=== PATIENT | male | born 1940 | race Caucasian/White ===

== ENCOUNTER 2016-11-24 20:07 | Inpatient (IN) | payer MEDICARE ==
--- NOTE | ~2016-11-24 | CN ---
Consultation Report [address] [place]. [address] NAME: EDDIE LOPEZ : 38 STATUS : ADM IN PAT#: [id number] AGE: 76 ADM/REG DATE : 11/25/16 MR#: [id number] REPORT SERV DATE: 11/25/16 DICTATED BY: MICHAEL SEBASTIAN III DATE: 11/25/16 REPORT STATUS : Draft TRANSCRIBED BY: MODL DATE: 11/25/16 CONSULTATION DATE OF CONSULTATION: REASON FOR CONSULTATION: 1. History of bladder cancer. 2. Urinary tract infection. HISTORY OF PRESENT ILLNESS: Mr. Lopez is a 76-year-old white male who is an old patient of mine. He has history of urothelial carcinoma and is status post several transurethral resections and recent surveillance cystoscopy, which showed no evidence of disease. He received prophylactic ciprofloxacin at that time, but is admitted now with urinary tract infection. PAST MEDICAL HISTORY: Bladder cancer as above, hypertension. HOME MEDICATIONS: Reviewed. Basically, just one triamcinolone cream. ALLERGIES: HE HAS NO KNOWN DRUG ALLERGIES. PHYSICAL EXAMINATION: GENERAL: The patient is awake and alert. LABORATORY DATA: His lab work reveals a white blood cell count of 9.5. BUN and creatinine are 20 and 1.4. His glucose is elevated at 294. ASSESSMENT: 1. History of urothelial carcinoma. No evidence of disease by cystoscopy recently. 2. Urinary tract infection. Culture is pending. The patient is receiving Rocephin. 3. New onset diabetes. PLAN: We will follow the urine culture and then recommend sensitivity directed antibiotics. He will be scheduled for cystoscopy in 6 months. PH/MODL Michael Sebastian III, M.D. / [id number] Consultation Report [address] [place]. [address] NAME: EDDIE LOPEZ : 38 STATUS : ADM IN PAT#: [id number] AGE: 76 ADM/REG DATE : 11/25/16 MR#: [id number] REPORT SERV DATE: 11/25/16 DICTATED BY: MICHAEL SEBASTIAN III DATE: 11/25/16 REPORT STATUS : Draft TRANSCRIBED BY: ALESHIA DATE: 11/25/16 CC: MD Radhames García M.D.
--- NOTE | ~2016-11-24 | HP ---
History And Physical [address] [place]. [address] NAME: EDDIE LOPEZ : 38 STATUS : ADM Jacob PAT#: [id number] AGE: 76 ADM/REG DATE : 11/24/16 MR#: [id number] REPORT SERV DATE: 11/25/16 DICTATED BY: YOSI MARTINEZ DATE: 11/25/16 REPORT STATUS : Draft TRANSCRIBED BY: MODL DATE: 11/25/16 DATE OF ADMISSION: 11/24/2016 CHIEF COMPLAINT: A 76-year-old male presenting with weakness and evidence of urinary tract infection. HISTORY OF PRESENT ILLNESS: The patient's history was obtained through careful interview with the patient and , coupled with review of [facility] and [facility] medical records. The patient early in the day of admission was feeling quite well. He had been traveling up to [place] with his and in the evening, was sitting down to watch television in a loveseat and he tried to get up and was too weak to get up from a seated position. He states "my legs just would not hold me up." He states that he has developed a fever when he arrived here and indeed we measured a temperature of 103.1, but he denies any chills. He has had significant diaphoresis. No urinary frequency. No dysuria. No difficulty with urine flow or other prostate symptoms apparently. The patient has been told he has diabetes in the past, but does not check his blood sugars nor take any medications for diabetes. No nausea or vomiting. No abdominal pain. No chest pain. No back pain. No headache. REVIEW OF SYSTEMS: Otherwise, a 14-point review of systems was obtained and was negative. PAST MEDICAL HISTORY: 1. Bladder cancer, urothelial, in 2008 with multiple TURBTs over the years, seen by Dr. Peterson. 2. Obstructive sleep apnea, but not on CPAP. 3. Chronic kidney disease stage 3. Baseline creatinine of 1.3 to 1.4. 4. Peptic ulcer disease. 5. Parathyroid adenoma, under observation. 6. Diabetes. 7. Nephrolithiasis. PAST SURGICAL HISTORY: 1. Multiple TURBTs. 2. Left elbow surgery. 3. Right shoulder surgery. ALLERGIES: NO KNOWN DRUG ALLERGIES. SOCIAL HISTORY: No tobacco abuse. No alcohol abuse. He is . He has no children. [facility] [address] [address] NAME: EDDIE LOPEZ : 38 STATUS : ADM Jacob PAT#: [id number] AGE: 76 ADM/REG DATE : 11/24/16 MR#: [id number] REPORT SERV DATE: 11/25/16 DICTATED BY: YOSI MARTINEZ DATE: 11/25/16 REPORT STATUS : Draft TRANSCRIBED BY: MODL DATE: 11/25/16 Retired from [employer]. FAMILY HISTORY: Stroke. Almost everyone in the family lived to an old age. CURRENT MEDICATIONS: Topical cream only. PHYSICAL EXAMINATION: VITAL SIGNS: Temperature 103.1, pulse 109, blood pressure 153/77, respiratory rate 20, and O2 saturation 97% on room air. GENERAL: A pleasant, cooperative male, not in any particular distress though. HEENT: Pupils are equal, round, and reactive to light. No conjunctival pallor. No scleral icterus. Nares are patent. Oropharynx is clear of obstruction. Dry mucous membranes. NECK: Trachea midline. No thyromegaly. LYMPH: No cervical lymphadenopathy. No supraclavicular lymphadenopathy. No inguinal lymphadenopathy. RESPIRATORY: Clear to auscultation at bases. No wheezes, rales, or rhonchi. Normal respiratory effort. CARDIOVASCULAR: Tachycardic. Regular rhythm. No murmurs, rubs, or gallops. No current extremity edema is appreciated. ABDOMEN: Completely soft and nontender. No distention noticed. No flank tenderness. No hepatosplenomegaly. DERMATOLOGIC: Diaphoretic warm extremities. No pallor. No cyanosis. PSYCHIATRIC: Normal affect. Good mood. Alert and oriented x3. LABORATORY DATA: White blood cell count 11, hemoglobin 13, hematocrit 39, platelets 162. Sodium 135, potassium 4.1, chloride 102, bicarbonate 24, BUN 24, creatinine 1.5, glucose 311. Urinalysis shows positive leukocyte esterase with 84 white blood cells. Lactic acid 1.8. Liver enzymes within normal limits. STUDIES: 1. Chest x-ray by my own evaluation shows no acute cardiopulmonary process. 2. EKG by my own evaluation shows sinus tachycardia, left ventricular hypertrophy. ASSESSMENT AND PLAN: 1. Urinary tract infection. Check urine culture. Place on IV Rocephin. Consult Urology, Dr. Peterson. Check an ultrasound of the bladder and kidneys. 2. Uncontrolled diabetes, does not take medications for diabetes though and does not check his blood sugars. Obtain a nutrition educator consult. Start empiric Levemir sliding scale insulin and check hemoglobin A1c. 3. Chronic kidney disease stage 3. 4. History of bladder cancer. 5. Chronic stasis dermatitis. Obtain a Wound Care consult. JEAN-PIERRE/ALESHIA History And Physical [address] [address] NAME: EDDIE LOPEZ : 38 STATUS : ADM Jacob PAT#: [id number] AGE: 76 ADM/REG DATE : 11/24/16 MR#: [id number] REPORT SERV DATE: 11/25/16 DICTATED BY: YOSI MARTINEZ DATE: 11/25/16 REPORT STATUS : Draft TRANSCRIBED BY: ALESHIA DATE: 11/25/16 Yosi Martinez M.D. / [id number] CC: MD Radhames García M.D. Gregg Shander, M.D. Paul Henson III, M.D.
--- NOTE | ~2016-11-24 | DS ---
Discharge Summary [facility] [address] [place]. [address] NAME: EDDIE LOPEZ : 38 STATUS : DIS IN PAT#: [id number] AGE: 76 ADM/REG DATE : 11/25/16 MR#: [id number] REPORT SERV DATE: 11/28/16 DICTATED BY: ISHAN DANG DATE: 11/27/16 REPORT STATUS : Draft TRANSCRIBED BY: MODL DATE: 11/27/16 ADMISSION DATE: 11/25/2016 DISCHARGE DATE: 11/27/2016 CONSULTANTS: Michael Peterson M.D., Urology. DISCHARGE DIAGNOSES: 1. Complicated urinary tract infection with methicillin sensitive Staph aureus. 2. Transient severe weakness due to complicated urinary tract infection and acute kidney injury. 3. Acute kidney injury, transient, resolved. 4. Hypertension. 5. Diabetes mellitus type 2 with poor control with A1c 10.9%. 6. Hypertension. 7. Obstructive sleep apnea, not wearing CPAP. 8. Chronic venous stasis on legs. 9. Obesity with body mass index 33.2. 10.History of renal stones. 11.History of parathyroid adenoma. HISTORY: This gentleman was with his traveled up to [place], was sitting down watching television in a chair and was too weak to get up from a seated position. Had fever of 103, diaphoresis, was found to have uncontrolled diabetes, and evidence for urinary tract infection and was referred to our team for inpatient care. Imaging on admission included a chest x-ray that was read as unremarkable other than a shallow inspiratory size. He had a renal ultrasound done on 11/25/2016 showing normal findings in the kidneys, small hypoechoic finding protruding from the posterior bladder wall on the right, possibly a small diverticulum. The patient's creatinine on admission to the hospital was 1.57, after hydration it came down to 1.13. His BUN was 24 on admission, by discharge it was 17. His white count on admission was 11, by discharge 6.3; his hemoglobin was mildly low throughout measuring 12.2 to 13.3, and he has mild thrombocytopenia that is new and he had a platelet count of a 148,000 that could be related to infection. His INR 1.2. Urinalysis on admission, glucose greater than 500, protein 30, moderate leukocyte esterase, 84 white blood cells, rare bacteria. Two blood cultures were obtained. One of them grew out coagulase-negative staph felt to be a contaminant. His urine culture grew out greater than 100,000 methicillin sensitive Staph aureus. Initially, he was on Rocephin; then when the preliminary urine culture grew gram positive, he was on vancomycin; and when the final cultures have arrived, we switched him over to oral Duricef. He was seen by urologist, Dr. Peterson who knows him from his previous bladder cancer treatment. He recommended continuation of his antibiotics and follow up with him in the office as already scheduled. The patient has had diabetes mellitus for years. He admits he has really not been doing anything about it. His A1c is 10.9%. primary special educator met with him and instructed him in Discharge Summary [address] [address] NAME: EDDIE LOPEZ : 38 STATUS : DIS IN PAT#: [id number] AGE: 76 ADM/REG DATE : 11/25/16 MR#: [id number] REPORT SERV DATE: 11/28/16 DICTATED BY: ISHAN DANG DATE: 11/27/16 REPORT STATUS : Draft TRANSCRIBED BY: ALESHIA DATE: 11/27/16 the methods for checking his blood sugar using a Contour Next meter, a new meter was given to him. Also he was shown how to use the Levemir FlexPen and the NovoLog FlexPen, each has a 45 dollar co-pay for him. The patient states he is willing to take that at this point in time. At discharge, he states he is ambulating and eating well. No pain, no dysuria. He has chronic nocturia, but he states no worse than his usual, and he is eager to go home. He can follow up with his PCP in the next week and Urology as scheduled. DISCHARGE MEDICATIONS: Norvasc 5 mg daily started for hypertension, NovoLog level 2 sliding scale a.c. and at nighttime, Levemir 12 units twice a day, lisinopril 10 mg daily for blood pressure, Tylenol 650 q.6 hours p.r.n. pain or fever, and cefadroxil 1000 mg p.o. b.i.d. for seven days. I spent 37 minutes today with the patient and with the discharge plan. DICTATED BY: Ishan Dang M.D. RSCecil/MODL Ishan Dang M.D. / [id number] CC: Alyse Juarez M.D. Gregg Shander, M.D. Vincent Viscomi, M.D., F.C.C.P. Michael Peterson III, M.D.
[~2016-11-24 20:07] MED LIST: *DENIES; DEMA20 PO; DIOV160 PO; GLUCOTRO10 PO; IRON325 MG PO; K-TABS10 MEQ PO; NO MED
[2016-11-24 21:26] LABS: BASOPHILS 0.1 %; BASOPHILS ABSOLUTE 0.01 10/3/uL (0.0-0.16); EOSINOPHILS 0.1 %; EOSINOPHILS ABSOLUTE 0.01 10/3/uL (0.0-0.53); HEMATOCRIT 39.8 % (40.0-51.0); HEMOGLOBIN 13.3 g/dL (13.6-17.8); IMMATURE GRANULOCYTES 0.7 %; IMMATURE GRANULOCYTES ABSOLUTE 0.08 10/3/uL (0.0-0.11); LYMPHOCYTES ABSOLUTE 1.21 10/3/uL (0.67-4.30); MEAN CORPUS HGB CONC 33.4 g/dL (32.0-36.0); MEAN CORPUSCULAR HEMOGLOB 26.7 pg (26.0-34.0); MONOCYTES 6.8 %; MONOCYTES ABSOLUTE 0.75 10/3/uL (0.21-1.20); NEUTROPHILS 81.3 %; NEUTROPHILS ABSOLUTE 8.94 10/3/uL (2.02-8.40); RBC DISTRIBUTION WIDTH 15.1 % (12.0-16.0); RED CELL COUNT 4.98 10/6/uL (4.7-6.1)
[2016-11-24 21:30] LABS: ASCORBIC ACID (UR NOT ORDER) NEG (NEG); BILIRUBIN, URINE NEGATIVE (NEG); ER URINALYSIS TAT 0 Hrs 12 Mins; KETONE, URINE NEGATIVE (NEG); LEUKOCYTE ESTERASE(NOT OR MOD (NEG); NITRITE (URINE) NEG (NEG); WBC (NOT ORDERED) (RFLEX) 84 (0-5)
[2016-11-24 21:33] LABS: INTERNATIONAL NORMAL RATI 1.2 UNITS (-); PROTIME (NOT ORD) 14.9 SEC (12.0-14.5)
[2016-11-24 21:34] LABS: PARTIAL THROMBO TIME 29.2 SEC (22.5-37.2)
[2016-11-24 21:39] LABS: ER CBC TAT 0 Hrs 20 Mins; MANUAL DIFF NO %; MEAN CORPUSCULAR VOLUME 79.9 fL (80-100); PLATELET COUNT 162 10/3/uL (150-400)
[2016-11-24 21:41] LABS: A/G RATIO 1.1 (0.7-1.9); ALBUMIN 3.4 G/DL (3.5-5.0); ALKALINE PHOSPHATASE 59 U/L (45-117); CHLORIDE, SERUM 102 MMOL/L (96-112); CO2 (CARBON DIOXIDE) 24 MMOL/L (24-34); CREATININE 1.57 MG/DL (0.70-1.30); GFR AFRICAN AMERICAN 49 ML/MIN (>=60); GFR NON AFRICAN AMERICAN 42 ML/MIN (>=60); GLOBULIN 3.1 G/DL (2.5-4.1); POTASSIUM, SERUM 4.1 MMOL/L (3.5-5.3); SGOT(AST) 13 U/L (5-40); SGPT(ALT) 14 U/L (5-65); TOTAL BILIRUBIN 0.6 MG/DL (0-1.2); TOTAL PROTEIN 6.5 G/DL (6.0-8.5)
[2016-11-24 21:42] LABS: BUN (BLOOD UREA NITROGEN) 24 MG/DL (6-23); GLUCOSE, SERUM 311 MG/DL (60-99); SODIUM, SERUM 135 MMOL/L (135-148)
[2016-11-24 21:46] LABS: LACTATE 1.8 MMOL/L (0.3-2.4)
[2016-11-24] MEDS ORDERED: TRIAMCINOLONE 0.5% TOP (21:57)
[2016-11-25 04:41] LABS: BASOPHILS 0.2 %; BASOPHILS ABSOLUTE 0.02 10/3/uL (0.0-0.16); EOSINOPHILS 0 %; HEMATOCRIT 38.3 % (40.0-51.0); HEMOGLOBIN 12.6 g/dL (13.6-17.8); IMMATURE GRANULOCYTES 0.8 %; IMMATURE GRANULOCYTES ABSOLUTE 0.08 10/3/uL (0.0-0.11); LYMPHOCYTES 6.4 %; LYMPHOCYTES ABSOLUTE 0.61 10/3/uL (0.67-4.30); MEAN CORPUS HGB CONC 32.9 g/dL (32.0-36.0); MEAN CORPUSCULAR HEMOGLOB 26.4 pg (26.0-34.0); MEAN CORPUSCULAR VOLUME 80.1 fL (80-100); MEAN PLATELET VOLUME 11.1 fL (9.2-13.0); MONOCYTES ABSOLUTE 1.61 10/3/uL (0.21-1.20); NEUTROPHILS 75.6 %; NEUTROPHILS ABSOLUTE 7.16 10/3/uL (2.02-8.40); PLATELET COUNT 153 10/3/uL (150-400); RED CELL COUNT 4.78 10/6/uL (4.7-6.1); WHITE BLOOD CELLS 9.5 10/3/uL (4.5-10.5)
[2016-11-25 04:44] LABS: INTERNATIONAL NORMAL RATI 1.2 UNITS (-); MANUAL DIFF NO %; PROTIME (NOT ORD) 15.1 SEC (12.0-14.5)
[2016-11-25 04:45] LABS: PARTIAL THROMBO TIME 30.8 SEC (22.5-37.2)
[2016-11-25 04:49] LABS: B NATRIURETIC PEPTIDE (BNP) 259.2 PG/ML (< 100.0)
[2016-11-25 04:51] LABS: ALBUMIN 2.9 G/DL (3.5-5.0); ALKALINE PHOSPHATASE 48 U/L (45-117); CALCIUM, SERUM 8.4 MG/DL (8.5-10.4); CHLORIDE, SERUM 104 MMOL/L (96-112); CO2 (CARBON DIOXIDE) 24 MMOL/L (24-34); GFR AFRICAN AMERICAN 56 ML/MIN (>=60); GFR NON AFRICAN AMERICAN 48 ML/MIN (>=60); GLOBULIN 2.9 G/DL (2.5-4.1); GLUCOSE, SERUM 294 MG/DL (60-99); POTASSIUM, SERUM 3.7 MMOL/L (3.5-5.3); SGOT(AST) 16 U/L (5-40); SGPT(ALT) 13 U/L (5-65); SODIUM, SERUM 137 MMOL/L (135-148); TOTAL BILIRUBIN 0.5 MG/DL (0-1.2); TOTAL PROTEIN 5.8 G/DL (6.0-8.5)
[2016-11-25 04:52] LABS: BUN (BLOOD UREA NITROGEN) 20 MG/DL (6-23)
[2016-11-25 04:54] LABS: TROPONIN I 0.07 NG/ML (<0.05)
[2016-11-25 06:13] LABS: PROCALCITONIN 0.37 ng/mL (<0.5)
[2016-11-25 07:17] LABS: GLYCOHEMOGLOBIN (HbA1c) 10.9 % (4.7-6.1)
[2016-11-26 06:27] LABS: CALCIUM, SERUM 8.7 MG/DL (8.5-10.4); CHLORIDE, SERUM 103 MMOL/L (96-112); CO2 (CARBON DIOXIDE) 24 MMOL/L (24-34); CREATININE 1.11 MG/DL (0.70-1.30); GFR AFRICAN AMERICAN 74 ML/MIN (>=60); GFR NON AFRICAN AMERICAN 64 ML/MIN (>=60); POTASSIUM, SERUM 3.6 MMOL/L (3.5-5.3); SODIUM, SERUM 137 MMOL/L (135-148)
[2016-11-26 06:28] LABS: BUN (BLOOD UREA NITROGEN) 14 MG/DL (6-23); GLUCOSE, SERUM 144 MG/DL (60-99)
[2016-11-27 05:17] LABS: BASOPHILS 0.2 %; BASOPHILS ABSOLUTE 0.01 10/3/uL (0.0-0.16); EOSINOPHILS 4.1 %; EOSINOPHILS ABSOLUTE 0.26 10/3/uL (0.0-0.53); HEMATOCRIT 37.2 % (40.0-51.0); HEMOGLOBIN 12.2 g/dL (13.6-17.8); IMMATURE GRANULOCYTES ABSOLUTE 0.06 10/3/uL (0.0-0.11); LYMPHOCYTES 16.8 %; LYMPHOCYTES ABSOLUTE 1.06 10/3/uL (0.67-4.30); MEAN CORPUS HGB CONC 32.8 g/dL (32.0-36.0); MEAN CORPUSCULAR HEMOGLOB 26.4 pg (26.0-34.0); MEAN CORPUSCULAR VOLUME 80.5 fL (80-100); MEAN PLATELET VOLUME 11.1 fL (9.2-13.0); MONOCYTES 19.8 %; MONOCYTES ABSOLUTE 1.25 10/3/uL (0.21-1.20); NEUTROPHILS 58.1 %; NEUTROPHILS ABSOLUTE 3.67 10/3/uL (2.02-8.40); PLATELET COUNT 148 10/3/uL (150-400); RBC DISTRIBUTION WIDTH 15.3 % (12.0-16.0); RED CELL COUNT 4.62 10/6/uL (4.7-6.1); WHITE BLOOD CELLS 6.3 10/3/uL (4.5-10.5)
[2016-11-27 05:19] LABS: MANUAL DIFF NO %
[2016-11-27 05:43] LABS: ALBUMIN 2.5 G/DL (3.5-5.0); BUN (BLOOD UREA NITROGEN) 17 MG/DL (6-23); CALCIUM, SERUM 8.9 MG/DL (8.5-10.4); CHLORIDE, SERUM 105 MMOL/L (96-112); CO2 (CARBON DIOXIDE) 24 MMOL/L (24-34); CREATININE 1.13 MG/DL (0.70-1.30); GFR AFRICAN AMERICAN 72 ML/MIN (>=60); GFR NON AFRICAN AMERICAN 62 ML/MIN (>=60); GLUCOSE, SERUM 116 MG/DL (60-99); PHOSPHORUS, SERUM 3.3 MG/DL (2.5-4.5); POTASSIUM, SERUM 3.8 MMOL/L (3.5-5.3); SODIUM, SERUM 138 MMOL/L (135-148)
[2016-11-27] MEDS ORDERED: NORV5 PO (15:00)
[2016-11-27] MEDS ORDERED: NOVOPEN SC (15:01)
[2016-11-27] MEDS ORDERED: PRIN10 PO (15:02)
[2016-11-27] MEDS ORDERED: LEVEMFLXPN SC ×2 (15:07→15:08)
[2016-11-27] MEDS ORDERED: T PO (15:09)
== END 2016-11-27 15:43 | disposition home or self-care (01) | DRG 683 ==
LOC: ER 20:07 → 2SO 22:31
PROVIDERS: Internal Medicine; Nurse Practitioner Acute Care; Nurse Practitioner Family; Student in an Organized Health Care Education/Training Program
DX: N17.9 Acute kidney failure, unspecified (principal); N39.0 Urinary tract infection, site not specified; E11.65 Type 2 diabetes mellitus with hyperglycemia; D69.6 Thrombocytopenia, unspecified; N18.3 Chronic kidney disease, stage 3 (moderate); B95.61 Methicillin susceptible Staphylococcus aureus infection as the cause of diseases classified elsewhere; G47.33 Obstructive sleep apnea (adult) (pediatric); K27.9 Peptic ulcer, site unspecified, unspecified as acute or chronic, without hemorrhage or perforation; D35.1 Benign neoplasm of parathyroid gland; I87.2 Venous insufficiency (chronic) (peripheral); I12.9 Hypertensive chronic kidney disease with stage 1 through stage 4 chronic kidney disease, or unspecified chronic kidney disease; I87.8 Other specified disorders of veins; E66.9 Obesity, unspecified; N32.3 Diverticulum of bladder; Z82.3 Family history of stroke; Z68.33 Body mass index [BMI] 33.0-33.9, adult; Z85.51 Personal history of malignant neoplasm of bladder; Z87.442 Personal history of urinary calculi
CPT/HCPCS: 71010; 76775; 80048; 80053; 80069; 81001; 82962; 83036; 83605; 83735; 83880; 84145; 84443; 84484; 85025; 85610; 85730; 87040; 87077; 87086; 87150; 87186; 93005; 99285; A9270-GY; J3370